=== PATIENT | male | born 1970 | race Caucasian/White ===

== ENCOUNTER → 2021-09-29 14:49 | Outpatient (BNVA) | payer SELFPAY | PROVIDERS: PCP Internal Medicine; Visit Provider Physician Assistant Medical | DX: Z02.79 Encounter for issue of other medical certificate (principal) ==

== ENCOUNTER → 2022-09-28 14:36 | Outpatient (BNVA) | payer SELFPAY | PROVIDERS: PCP Internal Medicine; Visit Provider Internal Medicine | DX: Z02.79 Encounter for issue of other medical certificate (principal) ==

== ENCOUNTER → 2023-09-28 07:39 | Outpatient (BNVA) | payer SELFPAY | PROVIDERS: PCP Internal Medicine; Visit Provider Physician Assistant Medical | DX: Z02.79 Encounter for issue of other medical certificate (principal) ==

== ENCOUNTER 2024-06-17 08:52 | Outpatient (REF) | payer OTHER, SELFPAY ==
--- OUTSIDE RECORDS SUMMARY | 2024-06-17 08:55 | XMS_ITS | Continuity of Care Document ---
Author Organization [address] [place] [address] Phone Care Team Providers Care Wharf Helper Name Role Phone Norma Vargas MD Unavailable Unavailable Advance Directives Directive Yes / No Effective Date File Name No Information Encounters Encounter Description Practice Location Reason(s) For Visit Diagnoses Date Provider Providers Copied on Encounter [address] [place], [id number], [place] tel:[phone] [facility] Encounter for pre-employme nt examination [address]. [address] [place] [address], [address], [place]. tel:[phone] Referring Provider: Norma Vargas, [address] [place] [address], [address]. tel:[phone] Family History Family Member Type Diagnosis Age At Onset No Information Payers Payer name Insurance type Covered democrat ID Authoriza tion(s) No Information Social History Type Description Quantity Date Captured Comments Alcohol Use Details Unknown Caffeine Use Details Unknown Tobacco Use Status No Information Smoking Status No Information Sex Male Chief Complaint And Reason For Visit No Information Reason For Referral Reason For Referral No Information History Of Present Illness Encounter Date Complaint History Of Prese nt Illness No Information Functional Status Date Functional Assessmen t No Information Instructions Date Instruction Additional Infor mation No Information Assessments Type Assessment Date assessment Encounter for pre-employment exa mination Patient Care Teams Name Effective Dates (start - stop) Status Members No Information
[2024-06-17 09:06] LABS: MANUAL DIFF FLAG NO
[2024-06-17 09:38] LABS: Basophils Percent Auto 0.1 % (0-2); Eosinophils Absolute Auto 0.3 X10*3/uL (0.0-0.4); Hematocrit 42.2 % (42.0-52.0); Hemoglobin 14.3 g/dl (14.0-18.0); Imm Gran Abs Auto 0.03 X10*3/uL (0.00-0.03); Imm Gran Pct Auto 0.4 % (0.0-0.4); Lymphocytes Absolute Auto 2.9 X10*3/uL (1.2-4.9); Lymphocytes Percent Auto 35.3 % (20-40); Mean Corpuscular HGB Conc 33.9 g/dl (31.0-36.0); Mean Corpuscular Hemoglobin 27.4 pg (27.0-33.0); Mean Corpuscular Volume 80.8 fL (80.0-98.0); Mean Platelet Volume 11.1 fL (9.4-12.4); Monocytes Absolute Auto 0.5 X10*3/uL (0.1-1.2); Monocytes Percent Auto 6.4 % (2-11); Neutrophils Absolute Auto 4.4 x10*3/uL (2.0-8.3); Neutrophils Percent Auto 53.8 % (45-73); Platelet Count 212 X10*3/uL (160-400); Red Blood Count 5.22 X10*6/uL (4.60-5.80); Red Cell Distribution Width 13.2 % (11.0-16.0); White Blood Count 8.2 X10*3/uL (4.8-10.8)
[2024-06-17 10:29] LABS: Albumin Level 4.1 g/dL (3.5-5.0); Alkaline Phosphatase 69 U/L (39-117); Anion Gap 13 (12-20); Aspartate Amino Transferase 49 U/L (5-37); Bilirubin Total 0.6 mg/dL (0.0-1.0); Blood Urea Nitrogen 18 mg/dL (9-16); Calcium 8.7 mg/dL (8.4-10.2); Carbon Dioxide 26 mmol/L (22-29); Chloride 101 mmol/L (96-108); Cholesterol 136 mg/dL (<200); Estimated Glomerular Filt Rate 54; Glucose Random 287 mg/dL (60-115); HDL Cholesterol 25 mg/dL (>40); Potassium 4.1 mmol/L (3.3-5.1); Sodium 136 mmol/L (135-145); Total Protein 7.9 g/dL (6.5-8.0); Triglycerides 519 mg/dL (<150)
[2024-06-17 10:35] LABS: TSH reflex Free T4 1.13 uIU/mL (0.32-4.0)
[2024-06-17 10:40] LABS: Alanine Aminotransferase 50 U/L (0-40)
== END 2024-06-17 08:53 | disposition home or self-care (01) ==
LOC: HO.LAB 08:52
PROVIDERS: PCP Internal Medicine; Visit Provider Internal Medicine
DX: E11.65 Type 2 diabetes mellitus with hyperglycemia (principal); I10 Essential (primary) hypertension
CPT/HCPCS: 36415; 80053; 80061; 84443; 85025

== ENCOUNTER 2024-06-21 15:54 | Outpatient (REF) | payer OTHER, SELFPAY ==
--- OUTSIDE RECORDS SUMMARY | 2024-06-21 18:38 | XMS_ITS | Continuity of Care Document ---
Author Organization [address] [place] [address] Phone Care Team Providers Care Utility Worker Name Role Phone Norma Vargas MD Unavailable Unavailable Advance Directives Directive Yes / No Effective Date File Name No Information Encounters Encounter Description Practice Location Reason(s) For Visit Diagnoses Date Provider Providers Copied on Encounter [address] [place], [id number], [place] tel:[phone] [facility] Encounter for pre-employme nt examination 5 Sam Green. [address] [place] [address], [address], [place]. tel:[phone] Referring Provider: Norma Vargas, [address] [place] [address], [address]. tel:[phone] Family History Family Member Type Diagnosis Age At Onset No Information Payers Payer name Insurance type Covered constitution party ID Authoriza tion(s) No Information Social History [...]
[2024-06-22 04:29] LABS: HBc Num1 0.06 S/CO (0.00-0.79); HBsAGNum1 0.38 S/CO (0.00-0.99); Hepatitis A Antibody IgM 0.18 Index (0-0.79); Hepatitis B Core Antibody Nonreactive (Nonreactive); Hepatitis B Surface Antigen Negative (Negative); ~Hepatitis A Antibody IgM Nonreactive (Nonreactive); ~Hepatitis B Surface Antibody NONREACTIVE (Nonreactive); ~Hepatitis C Antibody Nonreactive (Nonreactive)
== END 2024-06-21 15:55 | disposition home or self-care (01) ==
LOC: HO.CHCLDS 15:54
PROVIDERS: Visit Provider Internal Medicine
DX: R74.01 Elevation of levels of liver transaminase levels (principal)
CPT/HCPCS: 36415; 86704; 86706; 86709; 86803; 87340

== ENCOUNTER 2024-08-12 07:50 | Outpatient (REF) | payer OTHER, SELFPAY ==
--- OUTSIDE RECORDS SUMMARY | 2024-08-12 07:52 | XMS_ITS | Encounter Summary ---
Author Organization [employer] Address [address] [facility] 7t [place] [address] Care Team Providers Care Computer Networking Instructor Adjunct Name Role Phone Emily Newsome MD Primary Care Provider [phone] Bunny Shell PharmD Unavailable Unavail able Leesa Garcia PharmD Unavailable [phone] Reason for Visit * Reason Comments Med Refill Encounter Details Date Type Department Care Team ([facility] st Contact Info) Description 02/29/2024 Refill [facility] MED & PEDS [address] [place], [place] [phone] Emily Newsome MD [address] [place] [address] Essential hypertension Social History Tobacco Use Types Packs/Day Years Used Date Smoking Tobacco: Never Smokeless Tobacco: Never Depression Answer Date Recorded Patient Health Questionnaire-9 Score 2 10/21/2022 Housing Stability Answer Date Recorded What is your housing situation today? I have ines crawley 03/22/[address] you li ve. Do you have problems with any of the following? None of the above 03/22/2023 Food Insecurity Answer Date Recorded Within the past 12 months, y ou worried that your food would run out before you got money to buy more: Never True 03/22/2023 Within the past 12 months,th e food you bought just didn't last and you didn't have enough money to get more: Not on file Transportation Answer Date Recorded In the past 12 months, has l ack of transportation kept you from medical appts, meetings, work or from getting things needed for daily living? No 03/22/2023 Utilities Answer Date Recorded In the past 12 months, has t he electric, gas, oil or water company threatened to shut off services in your home? No 03/22/2023 Depression Answer Date Recorded Patient Health Questionnaire-2 Score 2 10/21/2022 Sex and Gender Information Value Date Recorded Sex Assigned at Male 04/06/2022 10:16 AM EDT Legal Sex Male 10:16 AM EDT Gender Identity Male 04/06/2022 10:16 AM EDT Sexual Orientation Straight 04/06/2022 10 :16 AM EDT documented as of this encounter Plan of Treatment Upcoming Encounters Date Type Department Care Team (Late st Contact Info) Description 10/04/2024 3:00 PM EDT Medication Management [facility] MED & PEDS [address] [place] [address] Leesa Garcia PharmD [address] [place] [address] 10/26/2024 4:00 PM EDT Office Visit [facility] [address] [place] [address] Emily Newsome MD [address] [place] [address] documented as of this encounter Goals Goal Patient Goal Type Associated Problems Recent Progress Patient-Stated? Author Blood Pressure < 140/90 Blood Pressure 135/87(2024 4:13 PM EST) No Bunny Shell, PharmD Hemoglobin A1c < 7 Result Component 12.5(06/13/19 25 4:37 PM EST) No Bunny Shell, PharmD documented as of this encounter Visit Diagnoses Diagnosis Essential hypertension Unspecified essential hypertension documented in this encounter Additional Health Concerns Assessment Noted Time PHQ-9 Depression Total Score: 2 10/22/19 23 2:05 PM EDT documented as of this encounter Care Teams Computer Networking Instructor Adjunct Relationship Specialty Start Date End Date Emily Newsome MD [address] [place] [address] PCP - General Internal Medicine 03/24/16 Bunny Shell, PharmD [address] [place] [address] Pharmacist Internal Medicine 11/13/22 07/09/24 Leesa Garcia, RaquelD [address] [place] [address] Pharmacist Internal Medicine 07/10/24 documented as of this encounter
--- OUTSIDE RECORDS SUMMARY | 2024-08-12 07:52 | XMS_ITS | Encounter Summary ---
Author Organization [employer] Address [address] [place] [address] 7 [place] [address] Care Team Providers Care Kickboxing Instructor Name Role Phone Emily Newsome MD Primary Care Provider [phone] Bunny Shell PharmD Unavailable Unavail able Leesa Garcia PharmD Unavailable [phone] Reason for Visit * Reason Onset Date Comments Med Refill 07/22/2022 Encounter Details Date Type Department Care Team ([facility] st Contact Info) Description 07/22/[address] [facility] MED & PEDS [address] [place], [place] [phone] Emily Newsome MD [address] [place], [place] [phone] Med Refill Social History Tobacco Use Types Packs/Day Years Used Date Smoking Tobacco: Never Assessed Sex and Gender Information Value Date Recorded Sex Assigned at Male 04/06/2022 10:16 AM EDT Legal Sex Male 10:16 AM EDT Gender Identity Male 04/06/2022 10:16 AM EDT Sexual Orientation Straight 04/06/2022 10 :16 AM EDT documented as of this encounter Miscellaneous Notes * Telephone Encounter - Kristan Ledbetter LPN - 07/22/2022 2:57 PM EST Medication queued to PCP awaiting approval. * Telephone Encounter - Lena Marrero - 07/22/2022 1:47 PM EST Tc from pt spouse requesting med refill metFORMIN (Glucophage) 1000 MG tablet Please sent to [id number] - [place], [place] - [address] [facility] [address] [facility] [address] documented in this encounter Plan of Treatment Upcoming Encounters Date Type Department Care Team (Late st Contact Info) Description 10/04/2024 3:00 PM EDT Medication Management [facility] MED & PEDS [address] [place] [address] Leesa Garcia PharmD [address] [place] [address] 10/26/2024 4:00 PM EDT Office Visit [facility] [address] [place], [place] [phone] Emily Newsome MD [address] [place], [place] documented as of this encounter Visit Diagnoses Not on filedocumented in this encounter Care Teams Kickboxing Instructor Relationship Specialty Start Date End Date Emily Newsome MD [address] [place], [place] PCP - General Internal Medicine 03/24/16 Bunny Shell PharmD [address] [place] [address] Pharmacist Internal Medicine 11/13/22 07/09/24 Leesa Garcia PharmD [address] [place] [address] Pharmacist Internal Medicine 07/10/24 documented as of this encounter
--- OUTSIDE RECORDS SUMMARY | 2024-08-12 07:52 | XMS_ITS | Encounter Summary ---
Author Organization [employer] Address [address] [facility] 7t [place] [address] Care Team Providers Care Engineering Group Leader Name Role Phone Emily Newsome MD Primary Care Provider [phone] Bunny Shell PharmD Unavailable Unavail able Leesa Garcia PharmD Unavailable [phone] Reason for Visit * Reason Onset Date Comments Med Refill 07/21/2023 Encounter Details Date Type Department Care Team (Late st Contact Info) Description 07/21/2023 Telephone [facility] [address] [place] [address] Emily Newsome MD [address] [place] [address] Med Refill Social History Tobacco Use Types [...] encounter Miscellaneous Notes * Telephone Encounter - Etta Peacock - 07/21/2023 4:00 PM EST TC from pt requesting medication refill. Medications needing refill : glimepiride (Amaryl) 2 MG tablet losartan-hydroCHLOROthiazide (Hyzaar) 50-12.5 MG tablet To be sent to: [id number] [place], [place] - [address] [facility] [address] [facility] [address] documented in this encounter Plan of Treatment Upcoming Encounters Date Type Department Care Team (Late st Contact Info) Description 10/04/2024 3:00 PM EDT Medication Management [facility] MED [facility] PEDS [address] [place] [address] Leesa Garcia, PharmD [address] [place] [address] 10/26/2024 4:00 PM EDT Office Visit [facility] MED [facility] PEDS [address] [place], [place] [phone] Emily Newsome MD [address] [place], [place] [phone] documented as of this encounter Goals Goal Patient Goal Type Associated Problems Recent Progress Patient-Stated? Author Blood Pressure < 140/90 Blood Pressure 135/87(2024 4:13 PM EST) No Bunny Shell PharmD Hemoglobin A1c < 7 Result Component 12.5(06/13/19 4:37 PM EST) No Bunny Shell PharmD documented as of this encounter Visit Diagnoses Not on filedocumented in this encounter Additional Health Concerns Assessment Noted Time PHQ-9 Depression Total Score: 2 10/22/19 2:05 PM EDT documented as of this encounter Care Teams Engineering Group Leader Relationship Specialty Start Date End Date Emily Newsome MD [address] [place] [address] PCP - General Internal Medicine 03/24/16 Bunny Shell PharmD [address] [place] [address] Pharmacist Internal Medicine 11/13/22 07/09/24 Leesa Garcia PharmD [address] [place] [address] Pharmacist Internal Medicine 07/10/24 documented as of this encounter
--- OUTSIDE RECORDS SUMMARY | 2024-08-12 07:52 | XMS_ITS | Encounter Summary ---
Author Organization [employer] Address [address] [facility] 7t [place] [address] Care Team Providers Care Commercial Escrow Officer Name Role Phone Emily Newsome MD Primary Care Provider [phone] Leesa Garcia PharmD Unavailable Encounter Details Date Type Department Care Team (Latest Contact Info) Description 08/09/2024 Travel Social History Tobacco Use Types Packs/Day Years Used Date Smoking Tobacco: Never Smokeless Tobacco: Never Depression Answer Date Recorded Patient Health Questionnaire-9 Score 0 07/26/2024 Patient Health Questionnaire-9 Score 0 07/26/2024 Last PHQ-9: Questionnaire Data Not on file 0 07/26/2024 Housing Stability Answer Date Recorded What is your housing situation today? I have ines crawley 07/26/[address] you li ve. Do you have problems with any of the following? None of the above 07/26/2024 Food Insecurity Answer Date Recorded Within the past 12 months, y ou worried that your food would run out before you got money to buy more: Never True 07/26/2024 Within the past 12 months,th e food you bought just didn't last and you didn't have enough money to get more: Never True Transportation Answer Date Recorded In the past 12 months, has l ack of transportation kept you from medical appts, meetings, work or from getting things needed for daily living? No 07/26/2024 Utilities Answer Date Recorded In the past 12 months, has t he electric, gas, oil or water company threatened to shut off services in your home? No 07/26/2024 Depression Answer Date Recorded Patient Health Questionnaire-2 Score 0 07/26/2024 Internet Access Answer Date Recorded Internet Access Q1 Yes 07/26/2024 Internet Access Q2 Not on file 07/26/2024 Sex and Gender Information Value Date Recorded Sex Assigned at Male 04/06/2022 10:16 AM EDT Legal Sex Male 10:16 AM EDT Gender Identity Male 04/06/2022 10:16 AM EDT Sexual Orientation Straight 04/06/2022 10 :16 AM EDT documented as of this encounter Plan of Treatment Upcoming Encounters Date Type Department Care Team (Late st Contact Info) Description 10/04/2024 3:00 PM EDT Medication Management [facility] MED & PED[facility] [address] [place] [address] Leesa Garcia PharmD [address] [place] [address] 10/26/2024 4:00 PM EDT Office Visit [facility] [address] [place], [place] [phone] Emily Newsome MD [address] [place] [address] documented as of this encounter Goals Goal [...] Assessment Noted Time PHQ-9 Depression Total Score: 0 07/26/19 25 4:32 PM EST documented as of this encounter Care Teams Commercial Escrow Officer Relationship Specialty Start Date End Date Emily Newsome MD [address] [place] [address] PCP - General Internal Medicine 03/24/16 Leesa Garcia PharmD [address] [place] [address] Pharmacist Internal Medicine 07/10/24 documented as of this encounter
--- OUTSIDE RECORDS SUMMARY | 2024-08-12 07:52 | XMS_ITS | Continuity of Care Document ---
Author Organization [address] [place] [address] Phone Care Team Providers Care Hydraulic Spinner Name Role Phone Norma Vargas MD Unavailable Unavailable Advance Directives Directive Yes / No Effective Date File Name No Information Encounters Encounter Description Practice Location Reason(s) For Visit Diagnoses Date Provider Providers Copied on Encounter [address] [place], [id number], [place] tel:[phone] [facility] Encounter for pre-employme nt examination 5 Sam Green. [address] [place] [address], [address], [place]. tel:[phone] Referring Provider: Norma Vargas, [address] [place] [address], [address]. tel:[phone] Family History Family Member Type Diagnosis Age At Onset No Information Payers Payer name Insurance type Covered libertarian ID Authoriza tion(s) No Information Social History [...]
--- OUTSIDE RECORDS SUMMARY | 2024-08-12 07:52 | XMS_ITS | Clinical Summary ---
Author Organization [facility] Address [address] [place] [address] Phone Care Team Providers Care Math And Sciences Department Chair Name Role Phone Uyen Samayoa MD Primary Care Provider Encounters Date Type Department Care Team Description 06/30/2024 7:07 AM EST - 06/30/2024 11:59 PM EST Hospital Encounter [facility] Ultrasound [address] [place] [address] Elevation of levels of liver transaminase levels Discharge Disposition: Home or Self Care from Last 3 Months Surgical History Surgery Date Site/Laterality Comments HERNIA REPAIR PROCEDURE: HISTORICAL HERNIA REPAIR/ING Medical History Medical History Date Comments Obesity, unspecified 03/05/2006 DX:Obesity, unspecified Type II or unspecified type diabetes mellitus without mention of complication, not stated as uncontrolled 03/05/2006 DX:Type II or unspecified ty pe diabetes mellitus without mention of complication, not stated as uncontrolled Essential hypertension, benign 03/05/2006 D X:Essential hypertension, benign Family History Medical History Relation Name Comments Blindness Neg Hx Cataracts Neg Hx Glaucoma Neg Hx Macular degeneration Neg Hx Strabismus Neg Hx Relation Name Status Comments Brother Alive Father Alive dm,htn,CAD Mother Alive dm,htn,CAD Sister 1 dm,htn,CAD,IVDA Sister 2 Alive HIV Sister 3 Alive Sister 4 Alive Son Alive Social History Tobacco Use Types Packs/Day Years Used Date Smoking Tobacco: Never Alcohol Use Standard Drinks/Week Comments No 0 (1 standard drink = 0.6 oz pur e alcohol) Sex and Gender Information Value Date Recorded Sex Assigned at Male 06/23/2024 10:07 AM EST Legal Sex Male 12:36 PM EST Gender Identity Male 06/23/2024 10:07 AM EST Sexual Orientation Straight 06/23/2024 10 :07 AM EST Obstetrics History Plan of Treatment Health Maintenance Due Date Last Done Comments Diabetes: Annual Foot Exam 10/30/1981 Diabetes: Annual Retina Eye Exam 10/30/1981 Hepatitis B Vaccines (1 of 3 - 19+ 3-dose series) 10/30/1990 12/24/2016 Pneumococcal Vaccine: 50+ Years (2 of 2 - PCV) 10/30/2021 05/23/2010 Colorectal Cancer Screening: Colonoscopy 05/05/2022 HIV Screening 05/05/2022 Hepatitis C Screening 05/05/2022 Social Influencers of Health Screening 05/05/2022 DTaP,Tdap,and Td Vaccines (2 - Td or Tdap) 03/21/2023 03/21/2013 Depression Screening 10/22/2023 10/21/2022 COVID-19 Vaccine ( season) 2024 04/26/2021, 08/29/2020, 08/01/2020 Influenza Vaccine (#1) 2024 , 03/24/2018, 04/16/2017, Additional history exists Diabetes: Annual Urine Albumin-Creatinine Ratio (uACR) 07/01/2024 Diabetes: Blood Sugar Control Test (HGBA1C) 12/11/2024 06/13/2024 Diabetes: Annual GFR (Glomerular Filtration Rate) 06/17/2025 06/17/2024 Hypertension/CHF/CAD Annual BMP Blood Test 06/17/2025 06/17/2024 Cholesterol Screening (Lipid Panel) 06/17/2029 06/17/2024 Pneumococcal Vaccine: Pediatrics (0 to 5 Years) and At-Risk Patients (6 to 64 Years) Aged Out 05/23/2010 No longer eligible based on patient's age to complete this topic Zoster Vaccines Completed 04/17/2022, 02/13/2022 HIB Vaccines Aged Out No longer eligi ble based on patient's age to complete this topic HPV Vaccines Aged Out No longer eligi ble based on patient's age to complete this topic Hepatitis A Vaccines Aged Out No long er eligible based on patient's age to complete this topic IPV Vaccines Aged Out No longer eligi ble based on patient's age to complete this topic MMR Vaccines Aged Out No longer eligi ble based on patient's age to complete this topic Meningococcal ACWY Vaccine Aged Out N o longer eligible based on patient's age to complete this topic Meningococcal B Vacine Aged Out No lo nger eligible based on patient's age to complete this topic RSV Immunization Patients Under 20 months Aged Out No longer eligible based on patient's age to complete this topic Varicella Vaccines Aged Out No longer eligible based on patient's age to complete this topic Procedures Procedure Name Priority Date/Time Associated Diagnosis Comments US ABDOMEN LIMITED Routine 06/30/2024 7: 53 AM EST Elevation of levels of liver transaminase levels from Last 3 Months Results * US Abdomen Limited (06/30/2024 7:53 AM EST) Anatomical Region Laterality Modality Body Ultrasound 07/04/2024 11:0 7 AM EST Impressions 07/04/2024 11:27 AM EST Hepatomegaly with diffusely increased echogenicity suggesting fatty infiltration. -------- FINAL REPORT -------- Dictated By: Fanta Reddy Dictated Date: 07/04/2024 11:07 ET Assigned Physician: Fanta Reddy Reviewed and Electronically Signed By: Fanta Reddy Signed Date: 07/04/2024 11:27 ET Workstation ID: [id number] Transcribed By: Self Edit Transcribed Date: 07/04/2024 11:07 ET Narrative 07/04/2024 11:27 AM EST INDICATION: ??Transaminitis FINDINGS: Ultrasound of the right upper quadrant performed. Prior relevant studies: None Pancreas: Nondiagnostic evaluation, completely obscured. Liver: Enlarged measuring up to 19.5 cm sagittally. Diffusely increased echogenicity suggesting fatty infiltration. No solid mass or intrahepatic ductal dilatation. Portal vein patent with hepatopedal flow. Gallbladder: Mild amount of mobile dependent echogenicity without artifact or shadowing likely represents a small amount of sludge or possibly small stones. No gallbladder wall thickening or adjacent fluid. Common bile duct: Not visualized. Right kidney: Survey images are within normal limits. Ascites: None Procedure Note Fanta Reddy MD - 07/04/2024 INDICATION: Transaminitis FINDINGS: Ultrasound of the right upper quadrant performed. Prior relevant studies: None Pancreas: Nondiagnostic evaluation, completely obscured. Liver: Enlarged measuring up to 19.5 cm sagittally. Diffusely increasedechogenicity suggesting fatty infiltration. No solid mass or intrahepaticductal dilatation. Portal vein patent with hepatopedal flow. Gallbladder: Mild amount of mobile dependent echogenicity without artifactor shadowing likely represents a small amount of sludge or possibly smallstones. No gallbladder wall thickening or adjacent fluid. Common bile duct: Not visualized. Right kidney: Survey images are within normal limits. Ascites: None IMPRESSION: Hepatomegaly with diffusely increased echogenicity suggesting fattyinfiltration. -------- FINAL REPORT -------- Dictated By: Fanta Reddy Dictated Date: 07/04/2024 11:07 ET Assigned Physician: Fanta Reddy Reviewed and Electronically Signed By: Fanta Reddy Signed Date: 07/04/2024 11:27 ET Workstation ID: [id number] Transcribed By: Self Edit Transcribed Date: 07/04/2024 11:07 ET us Emily Newsome MD IMG US PROCEDURES Final R esult from Last 3 Months Insurance [employer] Care Teams Math And Sciences Department Chair Relationship Specialty Start Date End Date Uyen Samayoa MD [address] [place] [address] PCP - General Internal Medicine 02/03/16
--- OUTSIDE RECORDS SUMMARY | 2024-08-12 07:52 | XMS_ITS | Encounter Summary ---
Author Organization [employer] Address [address] [facility] 7t [place] [address] Care Team Providers Care Food Service Ambassador Name Role Phone Emily Newsome MD Primary Care Provider [phone] Bunny Shell PharmD Unavailable Unavail able Leesa Garcia PharmD Unavailable [phone] Reason for Visit * Reason Onset Date Comments Nurse Triage 04/18/2024 Encounter Details Date Type Department Care Team (Late st Contact Info) Description 04/18/2024 Telephone [facility] MEDICINE [address] [place] [address] Emily Newsome MD [address] [place] [address] Nurse Triage Social History Tobacco Use Types Packs/Day Years [...] encounter Miscellaneous Notes * Telephone Encounter - Cordelia Carrera RN - 04/18/2024 9:06 AM EST Triage call 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 Pt requested , spouse, Katherine to request apt for follow up tick bite. Pt was bitten by a brown tick last week 04/13or04/14 on the upper right arm. . Pt had some swelling, redness , tenderness at that time. It seemed to get better but, today Pt reports bite is red, swollen, bump in the middle of bite area and a rash has spread over the whole right arm. ASK apt with Dr. Seaman today at 230pm. Insurance is verified as active prior to booking. Protocol Used: Tick Bite (Adult) Protocol-Based Disposition: See in Office or Video Visit Today Video visit not offered Positive Triage Question: * Patient wants to be seen * All higher-acuity triage questions were negative Care Advice Discussed: * Reasons To Call Back - Fever or rash occur in the next 4 weeks - Bite begins to look infected - You become worse * Telephone Encounter - Fito Ortega - 04/18/2024 8:33 AM EST Symptom: Rash or Redness - Widespread Outcome: Talk to a nurse or provider within 15 minutes Reason: Large blisters on skin The caller accepted this outcome. Contact pt spouse at [phone] documented in this encounter Plan of Treatment Upcoming Encounters Date Type Department Care Team (Late st Contact Info) Description 10/04/2024 3:00 PM EDT Medication Management [facility] MED & PEDS [address] [place] [address] Leesa Garcia PharmD [address] [place] [address] 10/26/2024 4:00 PM EDT Office Visit [facility] MED & PEDS [address] [place], [place] [phone] Emily Newsome MD [address] [place], [place] documented as of this encounter Goals Goal Patient Goal Type Associated Problems Recent Progress Patient-Stated? Author Blood Pressure < 140/90 Blood Pressure 135/87(2024 4:13 PM EST) No Bunny Shell PharmShane Hemoglobin A1c < 7 Result Component 12.5(06/13/19 4:37 PM EST) No Bunny Shell, PharmD documented as of this encounter Visit Diagnoses Not on filedocumented in this encounter Additional Health Concerns Assessment Noted Time PHQ-9 Depression Total Score: 2 10/22/19 2:05 PM EDT documented as of this encounter Care Teams Food Service Ambassador Relationship Specialty Start Date End Date Emily Newsome MD [address] [place] [address] PCP - General Internal Medicine 03/24/16 Bunny Shell, PharmD [address] [place] [address] Pharmacist Internal Medicine 11/13/22 07/09/24 Leesa Garcia PharmD [address] [place] [address] Pharmacist Internal Medicine 07/10/24 documented as of this encounter
--- OUTSIDE RECORDS SUMMARY | 2024-08-12 07:52 | XMS_ITS | Encounter Summary ---
Author Organization [employer] Address [address] [facility] 7t [place] [address] Care Team Providers Care Nickel Plater Name Role Phone Emily Newsome MD Primary Care Provider [phone] Leesa Garcia PharmD Unavailable [phone] Encounter Details Date Type Department Care Team (Latest Contact Info) Description 07/26/2024 Travel Social History Tobacco Use Types Packs/Day [...] Description 10/04/2024 3:00 PM EDT Medication Management [facility] MED & PEDS [address] [place] [address] Leesa Garcia PharmD 230 [place] [address] 10/26/2024 4:00 PM EDT Office Visit [facility] MED & PEDS [address] [place], [place] [phone] Emily Newsome MD [address] [place] [address] documented as of this encounter Goals Goal [...] documented as of this encounter Care Teams Nickel Plater Relationship Specialty Start Date End Date Emily Newsome MD [address] [place] [address] PCP - General Internal Medicine 03/24/16 Leesa Garcia PharmD [address] [place] [address] Pharmacist Internal Medicine 07/10/24 documented as of this encounter
--- OUTSIDE RECORDS SUMMARY | 2024-08-12 07:52 | XMS_ITS | Encounter Summary ---
Author Organization [employer] Address [address] [facility] 7t [place] [address] Care Team Providers Care Wiper Blender Name Role Phone Emily Newsome MD Primary Care Provider [phone] Leesa Garcia PharmD Unavailable [phone] Reason for Visit * Reason Comments Med Refill Encounter Details Date Type Department Care Team (Late st Contact Info) Description 07/31/2024 Refill [facility] MEDICINE [address] [place] [address] Emily Newsome MD [address] [place] [address] Social History Tobacco Use Types Packs/Day Years [...] Description 10/04/2024 3:00 PM EDT Medication Management [facility] MED & PEDS [address] [place] [address] Leesa Garcia PharmD [address] [place] [address] 10/26/2024 4:00 PM EDT Office Visit [facility] MED & PEDS [address] [place], [place] [phone] Emily Newsome MD [address] [place] [address] documented as of this encounter Goals Goal [...] Time PHQ-9 Depression Total Score: 0 07/26/19 4:32 PM EST documented as of this encounter Care Teams Wiper Blender Relationship Specialty Start Date End Date Emily Newsome MD [address] [place] [address] PCP - General Internal Medicine 03/24/16 Leesa Garcia PharmD [address] [place] [address] Pharmacist Internal Medicine 07/10/24 documented as of this encounter
--- OUTSIDE RECORDS SUMMARY | 2024-08-12 07:52 | XMS_ITS | Encounter Summary ---
Author Organization [employer] Address [address] [facility] 7t [place] [address] Care Team Providers Care Pharmacist In Charge Name Role Phone Emily Newsome MD Primary Care Provider [phone] Bunny Shell PharmD Unavailable Unavail able Leesa Garcia PharmD Unavailable [phone] Reason for Visit * Reason Comments Med Refill Encounter Details Date Type Department Care Team (Late st Contact Info) Description 02/29/2024 Refill [facility] MEDICINE [address] [place] [address] Emily Newsome MD [address] [place] [address] Essential hypertension Social History Tobacco Use Types [...] Description 10/04/2024 3:00 PM EDT Medication Management [facility] MED & PEDS 505 [place] [address] Leesa Garcia PharmD [address] [place] [address] 10/26/2024 4:00 PM EDT Office Visit [facility] MED & PEDS [address] [place] [address] Emily Newsome MD [address] [place] [address] documented as of this encounter Goals Goal [...] documented as of this encounter Care Teams Pharmacist In Charge Relationship Specialty Start Date End Date Emily Newsome MD [address] [place] [address] PCP - General Internal Medicine 03/24/16 Bunny Shell, RaquelD [address] [place] [address] Pharmacist Internal Medicine 11/13/22 07/09/24 Leesa Garcia, RaquelD [address] [place] [address] Pharmacist Internal Medicine 07/10/24 documented as of this encounter
--- OUTSIDE RECORDS SUMMARY | 2024-08-12 07:52 | XMS_ITS | Encounter Summary ---
Author Organization [employer] Address [address] [place] [address] [address], [place] [address] Care Team Providers Care Real Estate Associate Attorney Name Role Phone Emily Newsome MD Primary Care Provider [phone] Bunny Shell PharmD Unavailable Unavail able Leesa Garcia PharmD Unavailable [phone] Reason for Visit * Reason Onset Date Comments Appointment Request 12/17/2022 Encounter Details Date Type Department Care Team ([facility] st Contact Info) Description 12/17/2022 Telephone [facility] MED & PEDS [address] [place], [place] [phone] Emily Newsome MD [address] [place], [place] [phone] Appointment Request Social History Tobacco Use Types Packs/Day Years Used Date Smoking Tobacco: Never Smokeless Tobacco: Never Depression Answer Date Recorded Patient Health Questionnaire-9 Score 2 10/21/2022 Depression Answer Date Recorded Patient Health Questionnaire-2 Score 2 10/21/2022 Sex and Gender Information Value Date Recorded Sex Assigned at Male 04/06/2022 10:16 AM EDT Legal Sex Male 10:16 AM EDT Gender Identity Male 04/06/2022 10:16 AM EDT Sexual Orientation Straight 04/06/2022 10 :16 AM EDT documented as of this encounter Miscellaneous Notes * Telephone Encounter - Lena Marrero - 12/17/2022 1:10 PM EDT Tc from pt spouse requesting to r/s appt for 12/17/2022 Please contact spouse at [phone] documented in this encounter Plan of Treatment Upcoming Encounters Date Type Department Care Team ([facility] st Contact Info) Description 10/04/2024 3:00 PM EDT Medication Management [facility] MED & PEDS [address] [place] [address] Leesa Garcia PharmD 230 [place] [address] 10/26/2024 4:00 PM EDT Office Visit [facility] MED & PEDS [address] [place], [place] [phone] Emily Newsome MD [address] [place], [place] documented as of this encounter Goals [...] documented as of this encounter Care Teams Real Estate Associate Attorney Relationship Specialty Start Date End Date Emily Newsome MD [address] [place] [address] PCP - General Internal Medicine 03/24/16 Bunny Shell PharmD [address] [place] [address] Pharmacist Internal Medicine 11/13/22 07/09/24 Leesa Garcia PharmD [address] [place] [address] Pharmacist Internal Medicine 07/10/24 documented as of this encounter
--- OUTSIDE RECORDS SUMMARY | 2024-08-12 07:52 | XMS_ITS | Encounter Summary ---
Author Organization [employer] Address [address] [facility] 7t [place] [address] Care Team Providers Care Qa Tester Name Role Phone Emily Newsome MD Primary Care Provider [phone] Bunny Shell PharmD Unavailable Unavail able Leesa Garcia PharmD Unavailable [phone] Encounter Details Date Type Department Care Team ([facility] st Contact Info) Description 04/01/2023 Orders Only [facility] MED & PEDS [address] [place], [place] [phone] Emily Newsome MD [address] [place] [address] Type 2 diabetes mellitus with hyperglycemia, without long-term current use of insulin ([facility]) (Primary Dx) Social History Tobacco Use Types Packs/Day Years [...] 10/04/2024 3:00 PM EDT Medication Management [facility] MED & PEDS [address] [place] [address] Leesa Garcia PharmD [address] [place] [address] 10/26/2024 4:00 PM EDT Office Visit [facility] MED & PEDS [address] [place] [address] Emily Newsome MD [address] [place] [address] documented as of this encounter Goals Goal Patient Goal Type Associated Problems Recent Progress Patient-Stated? Author Blood Pressure < 140/90 Blood Pressure 135/87(2024 4:13 PM EST) No Bunny Shell PharmD Hemoglobin A1c < 7 Result Component 12.5(06/13/19 25 4:37 PM EST) No Bunny Shell PharmD documented as of this encounter Visit Diagnoses Diagnosis Type 2 diabetes mellitus with hyperglycemia, without long-term current use of insulin ([facility])- Primary documented in this encounter Additional Health Concerns Assessment Noted Time PHQ-9 Depression Total Score: 2 10/22/19 23 2:05 PM EDT documented as of this encounter Care Teams Qa Tester Relationship Specialty Start Date End Date Emily Newsome MD [address] [place] [address] PCP - General Internal Medicine 03/24/16 Bunny Shell, PharmD [address] [place] [address] Pharmacist Internal Medicine 11/13/22 07/09/24 Leesa Garcia, RaquelD [address] [place] [address] Pharmacist Internal Medicine 07/10/24 documented as of this encounter
--- OUTSIDE RECORDS SUMMARY | 2024-08-12 07:52 | XMS_ITS | Encounter Summary ---
Author Organization [employer] Address [address] [facility] 7t [place] [address] Care Team Providers Care Automotive Shop Foreman Name Role Phone Emily Newsome MD Primary Care Provider [phone] Leesa Garcia PharmD Unavailable [phone] Reason for Visit * Reason Comments Diabetes Hypertension Encounter Details Date Type Department Care Team ([facility] st Contact Info) Description 07/26/2024 4:00 PM EST Office Visit [facility] MED & PEDS [address] [place] [address] Emily Newsome MD [address] [place] [address] Type 2 diabetes mellitus with hyperglycemia, without long-term current use of insulin ([facility]) (Primary Dx); Primary hypertension Social History Tobacco Use Types Packs/Day [...] AM EDT documented as of this encounter Last Filed Vital Signs Vital Sign Reading Time Taken Comments Blood Pressure 135/87 07/26/2024 4:13 PM EST Pulse 68 07/26/2024 4:13 PM EST Temperature 36.6 ??C (97.9 ??F) 07/26/2024 4:13 PM ES T Respiratory Rate 20 07/26/2024 4:13 PM EST Oxygen Saturation 97% 07/26/2024 4:13 PM EST Inhaled Oxygen Concentration - - Weight 94.8 kg (209 lb) 07/26/2024 4:13 PM EST Height 167.6 cm (5' 6 ) 07/26/2024 4:13 PM EST Body Mass Index 33.73 07/26/2024 4:13 PM EST documented in this encounter Progress Notes * Emily Newsome MD - 07/26/2024 4:00 PM EST Subjective Patient ID: Jeremy Villafuerte is a 53 y.o. male who presents for Diabetes and Hypertension. Diabetes He presents for his follow-up diabetic visit. He has type 2 diabetes mellitus. His disease course has been improving. Pertinent negatives for hypoglycemia include no headaches or sweats. Pertinent negatives for diabetes include no blurred vision, no chest pain, no fatigue, no foot paresthesias, no foot ulcerations, no polydipsia, no polyphagia, no polyuria, no visual change, no weakness and no weight loss. Hypertension This is a chronic problem. The problem is controlled. Pertinent negatives include no anxiety, blurred vision, chest pain, headaches, malaise/fatigue, neck pain, orthopnea, palpitations, peripheral edema, PND, shortness of breath or sweats. No acute events since the last office visit. At the last visit the blood pressure was above goal and losartan was increased to 100 mg daily. the current dose is well-tolerated and blood pressure has normalized at home. Patient was evaluated by our clinical pharmacist and he was prescribed a CGM. Patient is scheduled to come back to get educated on how to use it. He has been going to the gym regularly to exercise since the last visit. Patient Active Problem List Diagnosis Astigmatism Diabetes mellitus ([facility]) Hyperlipidemia Hypertension Obesity Tick bite of right upper arm Current Outpatient Medications on File Prior to Visit Medication Sig Dispense Refill amLODIPine (Norvasc) 10 MG tablet Take 1 tablet (10 mg) by mouth Once per day. 90 tablet 3 aspirin 81 MG EC tablet 1 tablet by mouth once a day atenolol (Tenormin) 100 MG tablet Take 1 tablet (100 mg) by mouth in the morning. 90 tablet 3 atorvastatin (Lipitor) 80 MG tablet Take 1 tablet (80 mg) by mouth Once per day. 30 tablet 11 Blood Glucose Monitoring Suppl (FreeStyle [place]) kit To check the Blood sugar 2 times a day 1 kit0 carbamide peroxide (Debrox) 6.5 % otic solution instill 5 drop by otic route 2 times every day intoaffected ear(s) Continuous Glucose Supervisor Looping (Dexcom G7 Supervisor Looping) device 1 each Use as directed. 1 each 0 Continuous Glucose Sensor (Dexcom G7 Sensor) misc 1 each Use as directed. Apply 1 sensor every 10 days 3 each 11 Dulaglutide (Trulicity) 1.5 MG/0.5ML solution auto-injector Inject 1.5 mg under the skin 1 (one) time per week. 2 mL 2 glimepiride (Amaryl) 2 MG tablet TAKE 1 TABLET BY MOUTH BEFORE BREAKFAST AND SUPPER 180 tablet 1 glucose blood (FREESTYLE LITE) test strip Test blood sugar every morning 100 each 11 glucose-vitamin C 4-6 GM-MG oral gel 1 tab if FS< 70 mg/dl Lancets 33G misc Test blood sugar every morning 100 each 11 losartan-hydroCHLOROthiazide (Hyzaar) 100-25 MG tablet Take 1 tablet by mouth Once per day. 30 tablet 11 metFORMIN (Glucophage) 1000 MG tablet TAKE 1 TABLET BY MOUTH WITH BREAKFAST AND TAKE 1 TABLET WITH EVENING MEAL. 180 tablet 3 No current facility-administered medications on file prior to visit. Allergies Allergen Reactions Ranitidine Other reaction(s): unspecified Lisinopril Rash Other reaction(s): rash Review of Systems Constitutional: Negative for fatigue, malaise/fatigue and weight loss. Eyes: Negative for blurred vision. Respiratory: Negative for shortness of breath. Cardiovascular: Negative for chest pain, palpitations, orthopnea and PND. Endocrine: Negative for polydipsia, polyphagia and polyuria. Musculoskeletal: Negative for neck pain. Neurological: Negative for weakness and headaches. Objective BP 135/87 (BP Location: Left arm, Patient Position: Sitting, BP Cuff Size: Adult) Pulse 68 Temp97.9 ??F (36.6 ??C) (Oral) Resp 20 Ht 5' 6 (1.676 m) Wt 209 lb (94.8 kg) SpO2 97% BMI 33.73 kg/m?? Physical Exam Constitutional: General: He is not in acute distress. Appearance: Normal appearance. He is not ill-appearing, toxic-appearing or diaphoretic. Cardiovascular: Rate and Rhythm: Normal rate. Heart sounds: No murmur heard. No friction rub. No gallop. Neurological: General: No focal deficit present. Mental Status: He is alert. Assessment/Plan Diagnoses and all orders for this visit: Type 2 diabetes mellitus with hyperglycemia, without long-term current use of insulin ([facility]) Comments: No change made to the current management today Continue with low-carb diet and regular exercise. Primary hypertension Comments: Controlled No change in medication DASH diet documented in this encounter Plan of Treatment Upcoming Encounters Date Type Department Care Team (Late st Contact Info) Description 10/04/2024 3:00 PM EDT Medication Management [facility] MED & PEDS [address] [place], [place] [phone] Leesa Garcia PharmD [address] [place] [address] 10/26/2024 4:00 PM EDT Office Visit [facility] [address] [facility] [place] [address] Emily Newsome MD [address] [place] [address] documented as of this encounter Goals Goal Patient Goal Type Associated Problems Recent Progress Patient-Stated? Author Blood Pressure < 140/90 Blood Pressure 135/87(2024 4:13 PM EST) No Bunny Shell, PharmShane Hemoglobin A1c < 7 Result Component 12.5(06/13/19 4:37 PM EST) No Bunny Shell, Radu documented as of this encounter Procedures Procedure Name Priority Date/Time Associated Diagnosis Comments POCT GLUCOSE Routine 07/26/2024 4:34 PM EST Type 2 diabetes mellitus with hyperglycemia, without long-term current use of insulin ([facility]) documented in this encounter Results * (ABNORMAL) POCT Glucose (07/26/2024 4:34 PM EST) [facility] Glucose Blood, POC 264(A) 60 - 200 mg/dL QC Media Lot # [id number] Lot# Expiration Date 4,825 Blood Capillary blood specimen / Unknown 07/26/2024 4:34 PM EST Emily Newsome MD POINT OF CARE TEST ENTER/ED IT ORDERABLES Final Result documented in this encounter Visit Diagnoses Diagnosis Type 2 diabetes mellitus with hyperglycemia, without long-term current use of insulin ([facility])- Primary Primary hypertension Unspecified essential hypertension documented in this encounter Additional Health Concerns Assessment Noted Time PHQ-9 Depression Total Score: 0 07/26/19 4:32 PM EST documented as of this encounter Care Teams Automotive Shop Foreman Relationship Specialty Start Date End Date Emily Newsome MD 505 [facility] [place] [address] PCP - General Internal Medicine 03/24/16 Leesa Garcia, Radu [address] [place] [address] Pharmacist Internal Medicine 07/10/24 documented as of this encounter
--- OUTSIDE RECORDS SUMMARY | 2024-08-12 07:52 | XMS_ITS | Encounter Summary ---
Author Organization [employer] Address [address] [facility] 7t [place] [address] Care Team Providers Care Shot Fireman Name Role Phone Emily Newsome MD Primary Care Provider [phone] Bunny Shell PharmD Unavailable Unavail able Lesea Garcia PharmD Unavailable [phone] Encounter Details Date Type Department Care Team (Late st Contact Info) Description 03/15/2023 Orders Only [facility] MED & PEDS [address] [place], [place] [phone] Emily Newsome MD [address] [place] [address] Type 2 diabetes mellitus with hyperglycemia, without long-term current use of insulin ([facility]) (Primary Dx) Social History Tobacco Use Types Packs/Day Years Used Date Smoking Tobacco: Never Smokeless Tobacco: Never Depression Answer Date Recorded Patient Health Questionnaire-9 Score 2 10/21/2022 Housing Stability Answer Date Recorded What is your housing situation today? I have ines crawley 03/15/[address] you li ve. Do you have problems with any of the following? None of the above 03/15/2023 Food Insecurity Answer Date Recorded Within the past 12 months, y ou worried that your food would run out before you got money to buy more: Never True 03/15/2023 Within the past 12 months,th e food you bought just didn't last and you didn't have enough money to get more: Not on file 02/2023 Transportation Answer Date Recorded In the past 12 months, has l ack of transportation kept you from medical appts, meetings, work or from getting things needed for daily living? No 03/15/2023 Utilities Answer Date Recorded In the past 12 months, has t he electric, gas, oil or water company threatened to shut off services in your home? No 03/15/2023 Depression Answer Date Recorded Patient Health Questionnaire-2 [...] Description 10/04/2024 3:00 PM EDT Medication Management [facility] MED & PEDS [address] [place] [address] Leesa Garcia PharmD [address] [place] [address] 10/26/2024 4:00 PM EDT Office Visit [facility] MED & PEDS [address] [place] [address] Emily Newsome MD [address] [place] [address] documented as of this encounter Goals Goal [...] hyperglycemia, without long-term current use of insulin ([facility])- Primary documented in this encounter Additional Health Concerns Assessment Noted Time PHQ-9 Depression Total Score: 2 10/22/19 23 2:05 PM EDT documented as of this encounter Care Teams Shot Fireman Relationship Specialty Start Date End Date Emily Newsome MD [address] [place] [address] PCP - General Internal Medicine 03/24/16 Bunny Shell, PharmD [address] [place] [address] Pharmacist Internal Medicine 11/13/22 07/09/24 Leesa Garcia, RaquelD [address] [place] [address] Pharmacist Internal Medicine 07/10/24 documented as of this encounter
[2024-08-12 10:35] LABS: Cholesterol 101 mg/dL (<200); HDL Cholesterol 23 mg/dL (>40); LDL Cholesterol Calculated 45 mg/dL (<100); Triglycerides 165 mg/dL (<150)
[2024-08-12 10:47] LABS: Vitamin B12 397 pg/mL (200-900)
[2024-08-12 11:01] LABS: Creatinine Urine 110.41 mg/dL
[2024-08-12 11:25] LABS: Microalbum/Creatinine Ratio Ur 500.8 ug/mg cr (<30)
== END 2024-08-12 07:51 | disposition home or self-care (01) ==
LOC: HO.LAB 07:50
PROVIDERS: PCP Internal Medicine; Visit Provider Internal Medicine
DX: E11.65 Type 2 diabetes mellitus with hyperglycemia (principal)
CPT/HCPCS: 36415; 80061; 82043; 82570; 82607

== ENCOUNTER → 2024-09-21 07:56 | Outpatient (BNVA) | payer SELFPAY | PROVIDERS: PCP Internal Medicine; Visit Provider Physician Assistant Medical | DX: Z02.79 Encounter for issue of other medical certificate (principal) ==